=== PATIENT | female | born 1985 | race Two or more races ===

== ENCOUNTER 2019-07-31 10:16 | Observation (INO) | payer BC ==
[~2019-07-31] VITALS: Ht 167.6 cm; Wt 82.0 kg
[2019-07-31 10:43] LABS: BASO # 0.1 x10^3/uL (0.0-0.2); BASO % 1 % (0-3); EOS # 0.1 x10^3/uL (0.0-0.7); EOS % 1 % (0-3); HEMATOCRIT 40.3 % (36.0-47.0); HEMOGLOBIN 13.8 g/dL (12.0-15.5); LYMPH # 3.1 x10^3/uL (1.0-4.8); LYMPH % 30 % (24-48); MEAN CORPUSCULAR HEMOGLOBIN 34 pg (25-35); MEAN CORPUSCULAR HGB CONC 34 g/dL (31-37); MEAN CORPUSCULAR VOLUME 98 fL (79-100); MONO % 9 % (0-9); NEUT % 58 % (31-73); PLATELET COUNT 346 x10^3/uL (140-400); RED CELL DISTRIBUTION WIDTH 13.2 % (11.5-14.5); WHITE BLOOD COUNT 10.4 x10^3/uL (4.0-11.0)
[2019-07-31] MEDS: IV NORMAL SALINE 1,000ML 1,000 ML IV SCH (10:44)
[2019-07-31 10:49] LABS: CALCIUM 8.8 mg/dL (8.5-10.1); CREATININE 0.7 mg/dL (0.6-1.0); GFR 95.2; POTASSIUM 3.7 mmol/L (3.5-5.1)
[2019-07-31 10:54] LABS: ACETAMIN < 2.0 mcg/mL (10-30); ETHANOL < 10 mg/dL (0-10)
[2019-07-31 10:55] LABS: ALBUMIN/GLOBULIN RATIO 1.1 (1.0-1.7); MAGNESIUM 1.9 mg/dL (1.8-2.4); TOTAL BILIRUBIN 0.2 mg/dL (0.2-1.0); TOTAL PROTEIN 7.5 g/dL (6.4-8.2)
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
[2019-07-31] MEDS ORDERED: IV NORMAL SALINE 1,000ML 1,000 ML IV SCH (11:51)
[2019-07-31] MEDS ORDERED: ONDANSETRON PF 4 MG/2 ML VIAL. IVP PRN (12:00)
[2019-07-31 12:01] LABS: BARBITURATES NEG (NEG); BENZODIAZEPINES POS (NEG); CANNABINOIDS NEG (NEG); COCAINE NEG (NEG); METHADONE NEG (NEG); OPIATES NEG (NEG); PHENCYCLIDINE NEG (NEG)
[2019-07-31 12:04] LABS: AMPHETAMINE/METHAMPHETAMINE NEG (NEG)
[2019-07-31 12:19] LABS: BILIRUBIN,URINE NEG (NEG); CLARITY,URINE CLEAR; COLOR,URINE YELLOW; GLUCOSE,URINE NEG (NEG); NITRITE,URINE NEG (NEG); UROBILINOGEN,URINE 0.2 mg/dL (0.2 mg/dL)
[2019-07-31 12:20] LABS: BACTERIA,URINE FEW /HPF (0-FEW); SQUAMOUS EPITHELIAL CELL,UR MANY /LPF; WBC,URINE OCC /HPF (0-4)
[2019-07-31 13:45] VITALS: BP 135/85
--- NOTE | 2019-07-31 15:10 | RAD ---
EXAM: Chest, single view. HISTORY: Cough. COMPARISON: None. FINDINGS: A frontal view of the chest is obtained. There is no infiltrate, pleural effusion or pneumothorax. The heart is normal in size. IMPRESSION: No acute pulmonary finding. Electronically signed by: Christa Nieto MD (07/31/2019 11:49 AM) [facility]
--- NOTE | 2019-07-31 15:42 | NUR ---
Pt arrived on unit at approximately 1400. Vital signs stable upon arrival. Pt woke from sleeping stupor and wanted to leave AMA. Pt left AMA to go home and take care of children. Pt was advised not to leave, but left against 's orders.
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
--- NOTE | 2019-07-31 18:20 | EKG ---
[address] [address] Test Date: 2019-07-31 Test Time: 10:26:49 Pat Name: MARIAN GTZ Department: Room: 125 A Gender: F Heating Repair Technician: : [id number] Requested By: CAROLYN DUQUE Order Number: [id number] Reading MD: Bola Payne Measurements Intervals [place] Rate: 91 P: 28 AR: 138 QRS: 34 QRSD: 76 T: 28 QT: 346 QTc: 427 Interpretive Statements SINUS RHYTHM NONSPECIFIC ST-T WAVE CHANGES. Electronically Signed On 08-01-2019 8:44:09 CDT by Bola Payne
== END 2019-07-31 15:45 | disposition home or self-care (01) ==
LOC: ER 10:16 → LND 11:40 → 1 SOUTH 14:50
PROVIDERS: ADMIT Internal Medicine; ATTEND Internal Medicine
DX: T42.4X2A Poisoning by benzodiazepines, intentional self-harm, initial encounter (principal); F17.210 Nicotine dependence, cigarettes, uncomplicated; F43.10 Post-traumatic stress disorder, unspecified; J45.909 Unspecified asthma, uncomplicated; R45.850 Homicidal ideations; Z20.828 Contact with and (suspected) exposure to other viral communicable diseases; Z90.49 Acquired absence of other specified parts of digestive tract; Y92.89 Other specified places as the place of occurrence of the external cause
CPT/HCPCS: 36415; 71045; 80053; 80307; 80329; 81001; 81025; 83735; 85025; 93005; 99285; G0378; G0480; G0379; 82003; J7030